=== PATIENT | female | born 1995 | race African-American/Black ===

== ENCOUNTER 2020-05-10 11:18 | Emergency (ER) | payer MEDICARE, MEDICAID ==
[~2020-05-10] VITALS: Ht 154.9 cm; Wt 50.0 kg
[2020-05-10] MEDS ORDERED: ACETAMINOPHEN 325MG TABLET PO PRN (12:15)
[2020-05-10 13:00] LABS: BASOPHILS % 0.7 % (0.0-2.0); EOSINOPHILS % 1.7 % (0.0-5.0); HEMOGLOBIN. 12.4 g/dL (12.0-16.0); LYMPHOCYTES % 22.7 % (20.0-50.0); MEAN CORPUSCULAR HEMOGLOBIN 26.4 pg (28.0-32.0); MEAN CORPUSCULAR VOLUME 81.2 fL (81.0-99.0); MEAN PLATELET VOLUME 8.6 fl (7.4-10.4); MONOCYTES % 8.3 % (2.0-8.0); NEUTROPHILS % 66.6 % (40.0-76.0); PLATELET 203 x1000/uL (130-400); RED BLOOD CELL COUNT 4.68 mill/uL (4.2-5.4); RED CELL DISTRIBUTION WIDTH 17.2 % (11.6-14.6)
[2020-05-10 13:11] LABS: CHLORIDE 105 mEq/L (98-107)
[2020-05-10 13:12] LABS: CLARITY URINE CLEAR (CLEAR); COLOR URINE YELLOW (YELLOW); KETONES URINE 3+ (NEGATIVE); LEUKOCYTE ESTERASE URINE NEGATIVE (NEGATIVE); NITRITE URINE NEGATIVE (NEGATIVE); OCCULT BLOOD URINE NEGATIVE (NEGATIVE); PH URINE 6.5 (4.5-8.0); PROTEIN URINE NEGATIVE (NEGATIVE); SPECIFIC GRAVITY URINE 1.019 (1.005-1.030)
[2020-05-10 13:51] LABS: B-HCG QUANTITATIVE 18491 mIU/mL (<3)
[2020-05-10 14:30] VITALS: BP 122/78
== END 2020-05-10 14:30 | disposition home or self-care (01) ==
LOC: ER 11:18
DX: O26.891 Other specified pregnancy related conditions, first trimester (principal); R10.2 Pelvic and perineal pain; Z3A.01 Less than 8 weeks gestation of pregnancy
CPT/HCPCS: 36415; 76801; 80053; 81003; 81025; 84702; 85025; 86850; 86900; 93005; 99284; 99285

== ENCOUNTER 2022-05-24 21:22 | Emergency (ER) | payer MEDICARE, MEDICAID ==
[~2022-05-24] VITALS: Ht 157.5 cm; Wt 52.9 kg
[2022-05-24 21:34] VITALS: BP 140/74
== END 2022-05-25 04:11 | disposition left against medical advice (07) ==
LOC: ER 21:22
DX: Z53.21 Procedure and treatment not carried out due to patient leaving prior to being seen by health care provider (principal)